=== PATIENT | male | born 1990 | race Caucasian/White ===

== ENCOUNTER 2022-07-27 18:27 | Emergency (ER) | payer SELFPAY ==
[~2022-07-27] VITALS: Ht 177.8 cm; Wt 75.0 kg
[2022-07-27] MEDS ORDERED: IBUPROFEN 600MG TABLET PO ONE (21:30)
[2022-07-27 21:34] VITALS: BP 157/77
[2022-07-27] MEDS ORDERED: BACITRACIN ZINC OINT UDPKT TOP ONE (22:30)
[2022-07-27] MEDS ORDERED: TETANUS, DIPHTHERIA, PERTUSSIS VAC/PF 0.5ML (>10YR OLD) IM ONE (22:30)
[2022-07-27] MEDS ORDERED: LIDOCAINE HCL 1% 20ML VIAL (Pyxis) INJ INFIL ONE (22:30)
== END 2022-07-28 00:17 | disposition home or self-care (01) ==
LOC: ER 18:27
DX: S61.210A Laceration without foreign body of right index finger without damage to nail, initial encounter (principal); W20.8XXA Other cause of strike by thrown, projected or falling object, initial encounter; Y93.89 Activity, other specified; Y92.9 Unspecified place or not applicable
CPT/HCPCS: 12001; 73140; 90471; 90715; 99283

== ENCOUNTER 2024-12-18 03:33 | Emergency (ER) | payer SELFPAY ==
[~2024-12-18] VITALS: Ht 175.3 cm; Wt 78.0 kg
[2024-12-18 03:34] VITALS: TEMP 36.8; O2SAT 97
[2024-12-18 04:15] LABS: BASOPHILS % 0.5 % (0.0-2.0); EOSINOPHILS % 2.5 % (0.0-5.0); HEMATOCRIT. 47.5 % (42.0-52.0); HEMOGLOBIN. 16.4 g/dL (14.0-18.0); LYMPHOCYTES % 24.1 % (20.0-50.0); MEAN CORPUSCULAR HEMOGLOBIN 30.7 pg (28.0-32.0); MEAN CORPUSCULAR HGB CONC 34.5 g/dL (31.0-37.0); MEAN CORPUSCULAR VOLUME 89.1 fL (80.0-94.0); MEAN PLATELET VOLUME 9.6 fl (7.4-10.4); MONOCYTES % 11.3 % (2.0-8.0); NEUTROPHILS % 61.6 % (40.0-76.0); PLATELET 119 x1000/uL (130-400); RED BLOOD CELL COUNT 5.33 mill/uL (4.7-6.1); RED CELL DISTRIBUTION WIDTH 12.8 % (11.6-14.6); WHITE BLOOD COUNT 4.7 x1000/uL (4.5-11.0)
[2024-12-18 04:28] LABS: CHLORIDE 104 mEq/L (98-107); POTASSIUM 4.1 mEq/L (3.5-5.1); SODIUM 137 mEq/L (136-145)
[2024-12-18 04:29] LABS: CALCIUM 9.9 mg/dL (8.7-10.4); CARBON DIOXIDE 27 mEq/L (21-32)
[2024-12-18 04:30] VITALS: BP 146/82; PULSE 69; RESP 16
[2024-12-18] MEDS: SODIUM CHLORIDE 0.9% 1,000 ML IV ONE (04:30)
[2024-12-18] MEDS: KETOROLAC 15MG/ML VIAL IV ONE (04:30)
[2024-12-18] MEDS: ONDANSETRON HCL 4MG/2ML INJ IV ONE (04:31)
[2024-12-18 04:34] LABS: CREATININE 1.2 mg/dL (0.6-1.3); GLUCOSE 106 mg/dL (70-105); UREA NITROGEN BLOOD 9 mg/dL (9-23)
[2024-12-18 04:36] LABS: ALANINE AMINOTRANSFERASE 114 IU/L (10-49); ALBUMIN 4.3 g/dL (3.2-4.8); ASPARTATE AMINOTRANSFERASE 98 IU/L (<34); BILIRUBIN DIRECT 0.2 mg/dL (<=3.0); PROTEIN TOTAL 7.3 g/dL (6.0-8.3)
[2024-12-18] MEDS: LOPERAMIDE HCL 2MG CAPSULE PO ONE (04:40)
[2024-12-18] MEDS ORDERED: IBUP-2029 MT (05:10)
[2024-12-18] MEDS ORDERED: ONDA4TAB50 MT (05:10)
[2024-12-18] MEDS ORDERED: IMOD MT (05:10)
== END 2024-12-18 05:47 | disposition home or self-care (01) ==
LOC: ER 03:36
DX: K52.9 Noninfective gastroenteritis and colitis, unspecified (principal); I10 Essential (primary) hypertension
CPT/HCPCS: 80076; 80048; 83690; 85025; 36415; 96361; 96374; 96375; 99284; J1885; J2405; J7030; Z7610 ×2